=== PATIENT | male | born 2000 | race Two or more races ===

== ENCOUNTER 2024-04-29 20:04 | Emergency (ER) | payer SELFPAY ==
[~2024-04-29] VITALS: Ht 170.2 cm; Wt 73.0 kg
[2024-04-29 20:06] VITALS: BP 109/79; PULSE 82; RESP 16; TEMP 97.2; O2SAT 97
[2024-04-29] MEDS ORDERED: SODIUM CHLORIDE 0.9% 1,000 ML IV ONE (20:45)
[2024-04-29 22:03] LABS: CHLORIDE 107 mEq/L (98-107); SODIUM 142 mEq/L (136-145)
[2024-04-29 22:04] LABS: CALCIUM 8.9 mg/dL (8.7-10.4); CARBON DIOXIDE 23 mEq/L (21-32)
[2024-04-29 22:05] LABS: BASOPHILS % 0.5 % (0.0-2.0); EOSINOPHILS % 0.6 % (0.0-5.0); HEMOGLOBIN. 14.8 g/dL (14.0-18.0); MEAN CORPUSCULAR HEMOGLOBIN 30.5 pg (28.0-32.0); MEAN CORPUSCULAR HGB CONC 33.6 g/dL (31.0-37.0); MEAN CORPUSCULAR VOLUME 90.8 fL (80.0-94.0); MEAN PLATELET VOLUME 8.1 fl (7.4-10.4); MONOCYTES % 5.1 % (2.0-8.0); NEUTROPHILS % 79.8 % (40.0-76.0); PLATELET 280 x1000/uL (130-400); RED BLOOD CELL COUNT 4.84 mill/uL (4.7-6.1); RED CELL DISTRIBUTION WIDTH 14.2 % (11.6-14.6); WHITE BLOOD COUNT 8.1 x1000/uL (4.5-11.0)
[2024-04-29 22:07] LABS: PROTHROMBIN TIME 10.9 sec (9.6-11.0)
[2024-04-29 22:09] LABS: CREATININE 0.8 mg/dL (0.6-1.3); GLUCOSE 113 mg/dL (70-105); UREA NITROGEN BLOOD 7 mg/dL (9-23)
[2024-04-29 22:19] LABS: ETHANOL BLOOD 329 mg/dL (<10)
== END 2024-04-30 02:57 | disposition home or self-care (01) ==
LOC: ER 20:17
DX: F10.129 Alcohol abuse with intoxication, unspecified (principal); R51.9 Headache, unspecified; Y90.8 Blood alcohol level of 240 mg/100 ml or more
CPT/HCPCS: 80048; 80320; 82962; 85025; 85610; 36415; 70450; 99284; J7030; G0480